=== PATIENT | female | born 1950 | race Caucasian/White ===

== ENCOUNTER 2021-04-04 16:32 | Emergency (ER) | payer BC, MEDICARE ==
[~2021-04-04 16:32] MED LIST: BACTROBAN OINT22 GM PO; DAYPRO600 M1 PO; DAYPRO600 MG PO; KEFLEX500 MG PO; VICODIN 500 MG-1 TAB PO; VICODIN ES 7501 TAB PO
== END 2021-04-04 23:21 ==
LOC: ED 16:32
DX: K04.7 Periapical abscess without sinus (principal); Z53.21 Procedure and treatment not carried out due to patient leaving prior to being seen by health care provider